=== PATIENT | female | born 1940 | race Caucasian/White ===

== ENCOUNTER 2017-06-11 09:57 | Outpatient (CLI) | payer OTHER ==
--- NOTE | 2017-06-11 12:17 | RAD ---
LUMBAR SPINE THREE VIEWS: History: Low back pain. Bilateral hip pain x one year. Comparison: None. FINDINGS: Lateral neutral, lateral flexion, and lateral extension views demonstrate five lumbar type vertebral bodies. In the neutral position, 3.7 mm of retrolisthesis of L1 upon L2, upon flexion 3.1 mm retrol isthesis of L1 upon L2, upon extension 3.4 mm retrolisthesis of L1 upon L2. In neutral position ther e is 4.6 mm retrolisthesis of L2 upon L3. Upon flexion there is 5 mm retrolisthesis of L2 upon L3. U allen extension there is 4 mm retrolisthesis of L2 upon L3. In the neutral position there is 3.5 mm an terolisthesis L5 upon S1. Upon flexion there is 8.2 mm anterolisthesis of L5 upon S1. Upon extension there is 2.5 mm anterolisthesis of L5 upon S1. IMPRESSION: Spondylolisthesis as above. POS: MORENITA
== END 2017-06-11 09:58 | disposition home or self-care (01) ==
LOC: TBSIIMAG 09:57
PROVIDERS: ATTEND Neurological Surgery
DX: M54.5 Low back pain (principal); M43.16 Spondylolisthesis, lumbar region
CPT/HCPCS: 72100